=== PATIENT | female | born 1975 | race Caucasian/White ===

== ENCOUNTER 2017-09-22 08:50 | Emergency (ER) | payer OTHER ==
[2017-09-22 09:06] VITALS: BP 129/72
--- NOTE | 2017-09-22 10:10 | UC ---
Respiratory Complaint HPI - HPI Summary HPI Summary: Patient presents with an unremarkable past medical history. She presents with one day onset generalized fatigue and malaise, fever, chills, and persistent dry cough. She denies chest pain, abdominal pain, shortness of breath, sore throat, ear pain, sputum production. nausea, vomiting or diarrhea. - History of Current Complaint Chief Complaint: UCGeneralIllness Stated Complaint: FLU SYMPTOMS Time Seen by Provider: 09/22/17 09:21 Hx Obtained From: Patient Hx Last Menstrual Period: 09/08/17 Onset/Duration: Sudden Onset Timing: Constant Severity Initially: Moderate Severity Currently: Moderate Pain Intensity: 0 Character: Cough: Nonproductive Aggravating Factors: Nothing Alleviating Factors: Spontaneous Resolution Associated Signs And Symptoms: Positive: Negative - Risk Factors Pulmonary Embolism Risk Factors: Negative Cardiac Risk Factors: Negative Pseudomonas Risk Factors: Negative Tuberculosis Risk Factors: Negative - Allergies/Home Medications Allergies/Adverse Reactions: Allergies Allergy/AdvReac Type Severity Reaction Status Date / Time No Known Allergies Allergy Verified 09/22/17 09:06 PMH/Surg Hx/FS Hx/Imm Hx Previously Healthy: Yes - Surgical History Surgical History: None Surgery Procedure, Year, and Place: denies - Family History Known Family History: Positive: None - Social History Occupation: Employed Full-time Lives: With Family Alcohol Use: Daily Substance Use Type: None Smoking Status (MU): Former Smoker Length of Time of Smoking/Using Tobacco: 15 When Did the Patient Quit Smoking/Using Tobacco: 2009 Review of Systems Constitutional: Fever, Chills, Fatigue Skin: Negative Eyes: Negative ENT: Negative Respiratory: Cough Cardiovascular: Negative Gastrointestinal: Negative Genitourinary: Negative Motor: Negative Neurovascular: Negative Musculoskeletal: Negative Neurological: Negative Psychological: Negative Is Patient Immunocompromised?: No All Other Systems Reviewed And Are Negative: Yes Physical Exam Triage Information Reviewed: Yes Appearance: Ill-Appearing Vital Signs: Initial Vital Signs Temp 99.2 F 09/22/17 09:02 Pulse 86 09/22/17 09:02 Resp 16 09/22/17 09:02 BP 129/72 09/22/17 09:02 Pulse Ox 99 09/22/17 09:02 Vital Signs Reviewed: Yes Eye Exam: Normal ENT Exam: Normal Neck exam: Normal Neck: Positive: 1 Respiratory Exam: Normal Cardiovascular Exam: Normal Abdominal Exam: Normal Musculoskeletal Exam: Normal Neurological Exam: Normal Psychological Exam: Normal Skin Exam: Normal Diagnostic Evaluation - Laboratory O2 Sat by Pulse Oximetry: 99 Respiratory Course/Dx - Course Course Of Treatment: Patient presents with one day onset fever, chills, fatigue , generalized body aches, and persistent dry cough. Influenza swab B positive. She was treated with tamiflu 75 mg by mouth twice daily for 5 days. Told to take tylenol and/or advil for fever, push fluids, and stay home 5 days. She verbalized understanding of and was in agreement with the discharge plan. - Differential Dx/Diagnosis Differential Diagnosis/HQI/PQRI: Influenza Provider Diagnoses: influenza Discharge - Discharge Plan Condition: Stable Disposition: HOME Prescriptions: Oseltamivir CAP* [Tamiflu CAP*] 75 mg PO BID #10 cap Oseltamivir SUSP 75 MG dose* [Tamiflu SUSP 75 MG dose*] 75 mg PO BID #10 oral.syrin Patient Education Materials: Influenza (DC) Referrals: No Primary Care Phys,NOPCP [Primary Care Provider] - Additional Instructions: Follow up with your doctor in 48 hours/
== END 2017-09-22 10:00 | disposition home or self-care (01) ==
LOC: UCEAST 08:50
DX: J11.1 Influenza due to unidentified influenza virus with other respiratory manifestations (principal); Z87.891 Personal history of nicotine dependence
CPT/HCPCS: 87502; 99212; G0463

== ENCOUNTER 2017-09-24 00:33 | Emergency (ER) | payer OTHER ==
[2017-09-24] MEDS ORDERED: Albuterol/Ipratropium NEB.SOL* Albuterol 2.5 MG/Ipratropium 0.5 MG 3 ML INH ONE (00:39)
[2017-09-24] MEDS ORDERED: NS 0.9% 1000 ML* 1,000 ML IV ONE (00:39)
[2017-09-24] MEDS ORDERED: Ketorolac INJ* 30 MG/ML 1 ML VIAL IV PUSH ONE (00:40)
[2017-09-24] MEDS ORDERED: Benzonatate CAP* 100 MG PO ONE (01:10)
--- NOTE | 2017-09-24 01:18 | ED ---
Respiratory - HPI Summary HPI Summary: 42yo otherwise healthy female presents with flu and shortness of breath. She states she got ill on Saturday with cough, congestion, sore throat and fevers. She was seen Saturday at the [facility] and was found to be + Flu B. She was treated with tamiflu. She has not gotten any better with the medication and presents tonight with persistent cough and some trouble breathing. She is doing ok sitting here now. - History of Current Complaint Chief Complaint: EDFluSymptoms Stated Complaint: FLU LIKE SYMPTOMS Time Seen by Provider: 09/24/17 01:02 Hx Obtained From: Patient Onset/Duration: Gradual Onset Pain Intensity: 7 - Allergy/Home Medications Allergies/Adverse Reactions: Allergies Allergy/AdvReac Type Severity Reaction Status Date / Time No Known Allergies Allergy Verified 09/24/17 00:37 PMH/Surg Hx/FS Hx/Imm Hx Previously Healthy: Yes Endocrine/Hematology History: Denies: Hx Diabetes, Hx Thyroid Disease Cardiovascular History: Denies: Hx Hypertension Respiratory History: Denies: Hx Asthma, Hx Chronic Obstructive Pulmonary Disease (COPD) GI History: Denies: Hx Ulcer - Surgical History Surgery Procedure, Year, and Place: denies Infectious Disease History: No Infectious Disease History: Denies: Hx Hepatitis, Hx Human Immunodeficiency Virus (HIV), Traveled Outside the [place] in Last 30 Days - Family History Known Family History: Positive: None - Social History Occupation: Employed Full-time - Professor at Alcohol Use: Daily Substance Use Type: Reports: None Hx Tobacco Use: Yes Smoking Status (MU): Former Smoker Length of Time of Smoking/Using Tobacco: 15 Review of Systems Positive: Fever, Chills, Fatigue Eyes: Negative Positive: Sore Throat. Negative: Nasal Discharge Negative: Chest Pain Positive: Shortness Of Breath, Cough Positive: Nausea. Negative: Vomiting Positive: Myalgia Negative: Rash All Other Systems Reviewed And Are Negative: Yes Physical Exam Triage Information Reviewed: Yes Vital Signs On Initial Exam: Initial Vitals Temp Pulse Resp BP Pulse Ox 37.8 C 124 24 119/75 98 09/24/17 00:35 09/24/17 00:35 09/24/17 00:35 09/24/17 00:35 09/24/17 00:35 Vital Signs Reviewed: Yes Appearance: Positive: No Pain Distress, Ill-Appearing Skin: Positive: Warm, Dry Head/Face: Positive: Normal Head/Face Inspection Eyes: Positive: EOMI, JAYME ENT: Positive: TMs normal. Negative: Nasal congestion, Nasal drainage, Tonsillar swelling, Hoarse voice Neck: Positive: Supple, No Lymphadenopathy Respiratory/Lung Sounds: Positive: Clear to Auscultation, Breath Sounds Present. Negative: Decreased Breath Sounds, Rales, Wheezes Cardiovascular: Positive: Pulses are Symmetrical in both Upper and Lower Extremities, Tachycardia - rate 110 Abdomen Description: Positive: Nontender, No Organomegaly, Soft Bowel Sounds: Positive: Present Musculoskeletal: Positive: Normal, Strength/ROM Intact Neurological: Positive: Normal, Sensory/Motor Intact, Alert, Oriented to Person Place, Time Psychiatric: Positive: Normal Diagnostics - Vital Signs Vital Signs Temp Pulse Resp BP Pulse Ox 09/24/17 00:35 37.8 C 124 24 119/75 98 - Laboratory Lab Statement: Any lab studies that have been ordered have been reviewed, and results considered in the medical decision making process. Re-Evaluation - Re-Evaluation First Eval Change: Improved - feeling better with IVF, breathing tx. No longer SOB but feels jittery and tachycardic after nebulizers. Disposition - Course Course Of Treatment: Reviewed UC results -- found to be + Flu B. Sats 100% RA with clear breath sounds. Breathing tx, fluids and toradol for sx as well as tessalon for cough suppression. - Differential Dx - Cardiopulmonary Differential Diagnoses - Cardiopulmonary: Influenza, Other - pneumonia - Diagnoses Provider Diagnoses: Influenza B, Fever, Dyspnea Discharge - Discharge Plan Condition: Good Disposition: HOME Prescriptions: Albuterol HFA INHALER* [Ventolin HFA Inhaler*] 2 puff INH Q4H PRN #1 mdi PRN Reason: shortness of breath/cough Benzonatate CAP* [Tessalon 100 MG CAP*] 100 mg PO TID PRN #30 cap PRN Reason: Cough Patient Education Materials: Influenza (ED) Referrals: Hallie Mock MD [Primary Care Provider] - Additional Instructions: Continue Tamiflu. Stay well hydrated. Mucinex D or equivalent. Return if trouble breathing, cant keep down fluids, worse or other concerns or other concerns. Off work all week.
[2017-09-24 02:12] VITALS: BP 118/50
== END 2017-09-24 02:09 | disposition home or self-care (01) ==
LOC: ED 00:33
DX: J10.1 Influenza due to other identified influenza virus with other respiratory manifestations (principal); R06.00 Dyspnea, unspecified; Z87.891 Personal history of nicotine dependence
CPT/HCPCS: 94640; 96361; 96374; 99282; A9270-GY; J1885